=== PATIENT | female | born 1945 | race Hispanic/Latino ===

== ENCOUNTER 2017-07-21 15:01 | Emergency (ER) | payer MEDICARE ==
[2017-07-21] MEDS ORDERED: ASPIRIN PO ONE (15:15)
[2017-07-21 15:38] LABS: Basophils # (Auto) 0.1 K/mm3 (0.0-0.1); Basophils % (Auto) 0.7 % (0.0-1.8); Eosinophils % (Auto) 0.4 % (0.0-4.3); Hematocrit 37.7 % (30.3-42.9); Hemoglobin 12.9 gm/dl (10.1-14.3); Lymphocytes # (Auto) 1.4 K/mm3 (1.2-5.4); Lymphocytes % (Auto) 17.8 % (13.4-35.0); Mean Corpuscular HGB Conc 34 % (30-34); Mean Corpuscular Hemoglobin 30 pg (28-32); Mean Corpuscular Volume 87 fl (79-97); Monocytes # (Auto) 0.6 K/mm3 (0.0-0.8); Monocytes % (Auto) 7.8 % (0.0-7.3); Platelet Count 233 K/mm3 (140-440); Red Blood Count 4.35 M/mm3 (3.65-5.03)
[2017-07-21 15:48] LABS: INR 0.95 (0.87-1.13)
[2017-07-21 15:49] LABS: BUN/Creatinine Ratio 11; Blood Urea Nitrogen 9 mg/dL (7-17); Calcium 9.1 mg/dL (8.4-10.2); Hemolysis Index 2; Partial Thromboplastin Time 31.4 Sec. (24.2-36.6)
--- NOTE | 2017-07-21 16:26 | Emergency Department Report ---
ED Shortness of Breath HPI - General Chief Complaint: Dyspnea/Respdistress Stated Complaint: CHEST PAIN Time Seen by Provider: 07/21/17 16:08 Source: patient (SHOB, chest pain especially with coughing, coughing productive of whitish sputum, and a little nausea since yesterday. She has felt chest congested for the last week or so. She does not smoke but her smokes inside the house.) Mode of arrival: Ambulatory Limitations: No Limitations - Related Data Home Medications Medication Instructions Recorded Confirmed Last Taken Citalopram [celeXA] 20 mg PO QDAY 09/11/13 07/21/17 01/09/16 20mg traZODone [Desyrel] 100 mg PO DAILY 09/11/13 07/21/17 01/09/16 100mg Ca/D3/Mag/Zinc/Odette/Brian/Mgbor 1 each PO DAILY 01/06/15 07/21/17 01/09/16 [Caltrate 600+D3+Min Chew Tab] 1 Dexlansoprazole [Dexilant] 60 mg PO QDAY 01/06/15 07/21/17 01/09/16 60mg Folic Acid [Folvite] 1 mg PO QDAY 01/06/15 07/21/17 01/09/16 1mg Lisinopril [Lisinopril] 40 mg PO DAILY 01/09/16 07/21/17 01/09/16 40mg Dexlansoprazole [Dexilant] 60 mg PO QDAY 07/21/17 07/21/17 Unknown Gabapentin [Neurontin] 300 mg PO BID 07/21/17 07/21/17 Unknown Oxycodone HCl/Acetaminophen 1 each PO Q6HR PRN 07/21/17 07/21/17 Unknown [Percocet 10/325 mg] Rosuvastatin (Nf) [Crestor] 10 mg PO QHS 07/21/17 07/21/17 Unknown Zolpidem [Ambien] 10 mg PO QHS 07/21/17 07/21/17 Unknown Previous Rx's Medication Instructions Recorded Last Taken Type Ciprofloxacin HCl [Cipro] 500 mg PO BID 10 Days tablet 07/21/17 Unknown Rx predniSONE [Deltasone] 50 mg PO QDAY 5 Days #5 tab 07/21/17 Unknown Rx Allergies Allergy/AdvReac Type Severity Reaction Status Date / Time No Known Allergies Allergy Verified 07/21/17 15:12 ED Review of Systems ROS: Stated complaint: CHEST PAIN Other details as noted in HPI Constitutional: denies: chills, fever Eyes: denies: eye pain, eye discharge, vision change ENT: denies: ear pain, throat pain Respiratory: cough, shortness of breath. denies: wheezing Cardiovascular: chest pain. denies: palpitations Endocrine: no symptoms reported Gastrointestinal: denies: abdominal pain, nausea, diarrhea Genitourinary: denies: urgency, dysuria, discharge Musculoskeletal: denies: back pain, joint swelling, arthralgia Skin: denies: rash, lesions Neurological: denies: headache, weakness, paresthesias Psychiatric: denies: anxiety, depression Hematological/Lymphatic: denies: easy bleeding, easy bruising ED Past Medical Hx - Past Medical History Hx Hypertension: Yes Hx Arthritis: Yes Hx Psychiatric Treatment: Yes (DEPRESSION) - Surgical History Additional Surgical History: hysto - Social History Smoking Status: Never Smoker Substance Use Type: None - Medications Home Medications: Home Medications Medication Instructions Recorded Confirmed Last Taken Type Citalopram [celeXA] 20 mg PO QDAY 09/11/13 07/21/17 01/09/16 History 20mg traZODone [Desyrel] 100 mg PO DAILY 09/11/13 07/21/17 01/09/16 History 100mg Ca/D3/Mag/Zinc/Odette/Brian/Mgbor 1 each PO DAILY 01/06/15 07/21/17 01/09/16 History [Caltrate 600+D3+Min Chew Tab] 1 Dexlansoprazole [Dexilant] 60 mg PO QDAY 01/06/15 07/21/17 01/09/16 History 60mg Folic Acid [Folvite] 1 mg PO QDAY 01/06/15 07/21/17 01/09/16 History 1mg Lisinopril [Lisinopril] 40 mg PO DAILY 01/09/16 07/21/17 01/09/16 History 40mg Ciprofloxacin HCl [Cipro] 500 mg PO BID 10 Days tablet 07/21/17 Unknown Rx Dexlansoprazole [Dexilant] 60 mg PO QDAY 07/21/17 07/21/17 Unknown History Gabapentin [Neurontin] 300 mg PO BID 07/21/17 07/21/17 Unknown History Oxycodone HCl/Acetaminophen 1 each PO Q6HR PRN 07/21/17 07/21/17 Unknown History [Percocet 10/325 mg] Rosuvastatin (Nf) [Crestor] 10 mg PO QHS 07/21/17 07/21/17 Unknown History Zolpidem [Ambien] 10 mg PO QHS 07/21/17 07/21/17 Unknown History predniSONE [Deltasone] 50 mg PO QDAY 5 Days #5 tab 07/21/17 Unknown Rx ED Physical Exam - General Limitations: No Limitations - Respiratory Respiratory exam: Present: wheezes, decreased breath sounds (at bases) ED Course Vital Signs 07/21/17 15:12 Temperature 98.5 F Pulse Rate 87 Respiratory 24 Rate Blood Pressure 226/83 O2 Sat by Pulse 97 Oximetry ED Medical Decision Making - Lab Data Result diagrams: 07/21/17 15:19 07/21/17 15:19 Critical care attestation.: If time is entered above; I have spent that time in minutes in the direct care of this critically ill patient, excluding procedure time. ED Disposition Clinical Impression: Atrial fibrillation with slow ventricular response Acute bronchitis Qualifiers: Bronchitis organism: unspecified organism Qualified Code(s): J20.9 - Acute bronchitis, unspecified Disposition: DC-01 TO HOME OR SELFCARE Is pt being admited?: No Does the pt Need Aspirin: No Condition: Stable Instructions: Acute Bronchitis (ED) Prescriptions: Ciprofloxacin HCl [Cipro] 500 mg PO BID 10 Days tablet predniSONE [Deltasone] 50 mg PO QDAY 5 Days #5 tab Time of Disposition: 19:12
[2017-07-21] MEDS ORDERED: PROVENTIL IH ONE (16:27)
[2017-07-21] MEDS ORDERED: ZOFRAN IV ONE (17:34)
--- NOTE | 2017-07-21 18:28 | XRay Report ---
FINAL REPORT EXAM: XR CHEST 1V AP HISTORY: SHOB COMPARISON: None available. FINDINGS: Frontal view(s) of the chest obtained. Cardiac silhouette within normal limits. No gross consolidation or effusion. No pneumothorax. IMPRESSION: No grossly acute findings.
[2017-07-21 19:14] VITALS: BP 159/63
== END 2017-07-21 19:20 | disposition home or self-care (01) ==
LOC: ED 15:01
DX: I48.91 Unspecified atrial fibrillation (principal); J20.9 Acute bronchitis, unspecified; M19.90 Unspecified osteoarthritis, unspecified site
CPT/HCPCS: 36415; 71045; 80048; 83880; 84484; 85025; 85610; 85730; 93005; 93010; 94640; 96374; 99284; J2405